=== PATIENT | female | born 1955 | race Caucasian/White ===

== ENCOUNTER 2023-08-18 18:45 | Emergency (ER) | payer MEDICARE, OTHER ==
[2023-08-18] MEDS ORDERED: Lidocaine 1% w/Epinephrine 1:100K 20 ML VIAL ONE (19:52)
[2023-08-18] MEDS ORDERED: Bupivacaine 0.25% 10 ML VIAL ONE (19:52)
[2023-08-18] MEDS ORDERED: Boostrix 0.5 ML (Tdap) VIAL (>/=7 yrs of age) ONE (19:53)
[2023-08-18] MEDS ORDERED: traMADol HCl 50 MG TAB ONE (20:56)
== END 2023-08-18 21:32 | disposition home or self-care (01) ==
LOC: ERS 18:45
DX: S09.90XA Unspecified injury of head, initial encounter (principal); S01.511A Laceration without foreign body of lip, initial encounter; S80.211A Abrasion, right knee, initial encounter; I10 Essential (primary) hypertension; E03.9 Hypothyroidism, unspecified; Z86.718 Personal history of other venous thrombosis and embolism; Z79.899 Other long term (current) drug therapy; Z79.01 Long term (current) use of anticoagulants; Z23 Encounter for immunization; W01.0XXA Fall on same level from slipping, tripping and stumbling without subsequent striking against object, initial encounter
CPT/HCPCS: 12011; 70450; 70486; 73130; 73564 ×2; 90471; 90715; 99283; J0665